=== PATIENT | male | born 1970 | race Caucasian/White ===

== ENCOUNTER 2019-11-03 15:55 | Emergency (ER) | payer SELFPAY ==
[~2019-11-03 15:55] MED LIST: Iopamidol-370 76% 500 ML 1 ML ONE
[2019-11-03 16:14] LABS: #Basophils 0.1 thou/uL (0.0-0.2); #Eosinphils 0.1 thou/uL (0.0-0.7); #Lymphocytes 3.5 thou/uL (1.20-3.40); #Monocytes 0.8 thou/uL (0.11-0.59); #Neutrophils 5.9 thou/uL (1.40-6.50); %Basophils 0.9 % (0.0-1.0); %Eosinophils 1.3 % (0.0-10.0); %Lymphocytes 33.9 % (21.0-51.0); %Monocytes 7.3 % (0.0-10.0); %Neutrophils 56.7 % (42.0-75.0); Hemoglobin 14.1 g/dL (14.0-18.0); Mean Corpuscular HGB CONC 34.7 g/dL (32.0-36.0); Mean Corpuscular Hemoglobin 33.1 pg (27.0-31.0); Mean Corpuscular Volume 95.3 fL (78.0-98.0); Mean Platelet Volume 7.5 fL (7.4-10.4); Platelet Count 319 thou/uL (130-400); RBC Distribution Width 11.6 % (11.5-14.5); Red Blood Cell (RBC) Count 4.26 mill/uL (4.70-6.10); White Blood Cell (WBC) Count 10.5 thou/uL (4.8-10.8)
--- NOTE | 2019-11-03 16:16 | RAD ---
AP view of the pelvis INDICATION: Fall 15feet onto concrete COMPARISON: None. FINDINGS: Bones: No acute fracture or subluxation is evident. Bone mineralization appears within normal limits. Hips: Intact. SI joints and symphysis pubis: Normal appearing. Intrapelvic contents: Within normal limits. IMPRESSION: No acute osseous abnormality.
--- NOTE | 2019-11-03 16:18 | RAD ---
Chest one view HISTORY: Injury. FINDINGS: No comparison. Cardiac silhouette and pulmonary vasculature are unremarkable. Mediastinum i s midline. Lungs are well-inflated. No evidence of pneumothorax. hall monitor leads overlie the chest. IMPRESSION : No acute abnormalities are demonstrated.
[2019-11-03 16:25] LABS: ALT (SGPT) 22 U/L (8-55); AST (SGOT) 24 U/L (5-34); Albumin 4.2 g/dL (3.5-5.0); Alcohol Less than 10 mg/dL (Less than 10); Alkaline Phosphatase 103 U/L (40-110); Anion Gap 16 mmol/L (10-20); BUN (Urea Nitrogen) 18 mg/dL (8.9-20.6); Bilirubin, Total 0.3 mg/dL (0.2-1.2); Calc. Creatinine Clearance 0 mL/min (70-130); Calcium 9.4 mg/dL (7.8-10.44); Carbon Dioxide 16 mmol/L (22-29); Chloride 110 mmol/L (98-107); Estimated GFR-MDRD 57; Globulin 2.8 g/dL (2.4-3.5); Glucose 86 mg/dL (70-105); Lipase 77 U/L (8-78); Potassium 4.2 mmol/L (3.5-5.1); Sodium 138 mmol/L (136-145)
--- NOTE | 2019-11-03 16:28 | CT ---
CT Brain WO Con: 11/03/2019 4:07 PM CLINICAL HISTORY: History of fall with head injury. IMAGING TECHNIQUE: Multiple CT images were obtained of the brain without IV contrast. COMPARISON: None. FINDINGS: Brain: No acute infarct or hemorrhage is evident. No midline shift. Ventricles: Normal. No hydrocephalus. Skull: Intact. Visualized Paranasal sinuses: Clear. Mastoid air cells:Clear. Extracranial soft tissues:Normal. IMPRESSION: No acute intracranial abnormality.
--- NOTE | 2019-11-03 16:44 | CT ---
CT OF THE CHEST, ABDOMEN AND PELVIS WITH IV CONTRAST INDICATION: Fall approximately 15 feet landing on the patient's feet with complaints of bilateral garland l pain and low back pain; level 2 trauma COMPARISON: None. FINDINGS: CHEST: Lungs:There is mild paraseptal emphysema. There is mild pleural parenchymal scarring. There is a 4 mm left apical pulmonary nodule on image 10 of series 3. No contusion is evident. Heart and great vessels:No acute traumatic injury seen. Pleural space: No pneumothorax or effusion. Additional findings: ABDOMEN: Liver:There is a small suspected cyst within the right hepatic lobe. Spleen:Normal appearing. Pancreas:Normal appearing. Adrenal Glands:Normal appearing. Kidneys:Normal appearing. Aorta:Normal appearing. Additional findings: No free fluid or free air. PELVIS: Bowel:There is a mild amount retained stool within the colon. The small bowel is of normal caliber. Bladder:Decompressed with a Novak catheter Reproductive structures:Normal appearing. Rectum and perirectal soft tissues:Normal appearing. Additional findings: No free fluid or free air. OSSEOUS STRUCTURES: No acute osseous abnormality. There is scattered degenerative and osteoarthritic changes. IMPRESSION: 1. No acute traumatic injury seen involving the chest, abdomen or pelvis. 2. Mild emphysema. 3. 4 mm left upper lobe pulmonary nodule. 4. Small suspected cyst within the right hepatic lobe. 5. Findings called to the biomedical engineering aide for Dr. French at 4:41 PM on November 03, 2019.
[2019-11-03] MEDS ORDERED: Fentanyl 100 MCG/2 ML VIAL ONE ×2 (16:45→17:48)
--- NOTE | 2019-11-03 16:45 | RAD ---
XR Foot Lt 3 View STANDARD INDICATION: Fall with left foot pain COMPARISON: None. FINDINGS: Bones: No acute fracture identified. Joints: Joints spaces appear preserved. Lisfranc alignment: Lisfranc alignment appears within normal limits. Soft tissues: No soft tissue injury demonstrated. No radiographic foreign body demonstrated. IMPRESSION: No acute osseous abnormality.
--- NOTE | 2019-11-03 16:45 | RAD ---
XR Foot Rt 3 View STANDARD INDICATION: Fall with right foot pain COMPARISON: None. FINDINGS: Bones: No acute fracture identified. Joints: Joints spaces appear preserved. Lisfranc alignment: Lisfranc alignment appears within normal limits. Soft tissues: No soft tissue injury demonstrated. No radiographic foreign body demonstrated. IMPRESSION: No acute osseous abnormality.
--- NOTE | 2019-11-03 16:46 | RAD ---
XR Forearm Rt 2 View STANDARD INDICATION: Fall with right forearm pain FINDINGS: Bones: No acute fracture or subluxation is evident. Joints: No acute abnormality. Soft tissues: No radiopaque foreign body is evident. IMPRESSION: No acute osseous abnormality.
[2019-11-03 17:22] LABS: Bilirubin Negative (Negative); Blood, Urine Negative (Negative); Clarity Clear (Clear); Glucose, Urine (Dipstick) Normal (Negative); Leukocyte Negative Leu/uL (Negative); Nitrite Negative (Negative); Protein, Urine (Dipstick) Negative (Neg-Trace); Urobilinogen Normal mg/dL (Less than 2)
--- NOTE | 2019-11-06 16:34 | CT ---
"PRELIMINARY REPORT" CT OF THE CHEST, ABDOMEN AND PELVIS WITH IV CONTRAST INDICATION: Fall approximately 15 feet landing on the patient's feet with complaints of bilateral garland l pain and low back pain; level 2 trauma COMPARISON: None. FINDINGS: CHEST: Lungs:There is mild paraseptal emphysema. There is mild pleural parenchymal scarring. There is a 4 mm left apical pulmonary nodule on image 10 of series 3. No contusion is evident. Heart and great vessels:No acute traumatic injury seen. Pleural space: No pneumothorax or effusion. Additional findings: ABDOMEN: Liver:There is a small suspected cyst within the right hepatic lobe. Spleen:Normal appearing. Pancreas:Normal appearing. Adrenal Glands:Normal appearing. Kidneys:Normal appearing. Aorta:Normal appearing. Additional findings: No free fluid or free air. PELVIS: Bowel:There is a mild amount retained stool within the colon. The small bowel is of normal caliber. Bladder:Decompressed with a Novak catheter Reproductive structures:Normal appearing. Rectum and perirectal soft tissues:Normal appearing. Additional findings: No free fluid or free air. OSSEOUS STRUCTURES: No acute osseous abnormality. There is scattered degenerative and osteoarthritic changes. IMPRESSION: 1. No acute traumatic injury seen involving the chest, abdomen or pelvis. 2. Mild emphysema. 3. 4 mm left upper lobe pulmonary nodule. 4. Small suspected cyst within the right hepatic lobe. 5. Findings called to the medical assisting instructor for Dr. French at 4:41 PM on November 03, 2019. Transcribed Date/Time: 11/06/2019 4:34 PM
--- NOTE | 2019-11-08 13:56 | EKG ---
Test Reason : Blood Pressure : / mmHG Vent. Rate : 091 BPM Atrial Rate : 091 BPM P-R Int : 148 ms QRS Dur : 078 ms QT Int : 366 ms P-R-T Axes : 080 044 056 degrees QTc Int : 450 ms Normal sinus rhythm Normal ECG Confirmed by SONJA SCHWARTZ DO ([id number]), editorial assistant DAVID GARCIA ([id number] on 11/08/2019 1:55:36 PM Referred By: Confirmed By:SONJA SCHWARTZ DO
== END 2019-11-03 18:39 | disposition home or self-care (01) ==
LOC: ERS 15:55
DX: M54.5 Low back pain (principal); M54.2 Cervicalgia; R91.1 Solitary pulmonary nodule; F41.9 Anxiety disorder, unspecified; F17.210 Nicotine dependence, cigarettes, uncomplicated; Z79.899 Other long term (current) drug therapy; W17.89XA Other fall from one level to another, initial encounter
CPT/HCPCS: 36415; 51702; 70450; 71045; 71260; 72125; 72170; 74177; 80053; 80307; 81003; 83605; 83690; 85025; 86850; 86900; 86901; 93005; 96374; 96376; J3010; Q9967